=== PATIENT | male | born 1980 | race Caucasian/White ===

== ENCOUNTER 2025-10-28 05:52 | Day surgery (SDC) | payer OTHER, SELFPAY ==
[2025-10-28] VITALS (8 sets, daily range): BP systolic 105–144; BP diastolic 58–95; BMI 31.8
[2025-10-28] MEDS: TYLENOL 1000 MG PO (06:35)
[2025-10-28] MEDS: NORMOSOL-R/PLASMALYTE-A 1000 IV (06:36)
--- NOTE | 2025-10-28 08:26 | W.IMMPOSTOP ---
Surgical Immed Post Op Note
-
Primary Surgeon: Ramírez Ford MD
Assisting Surgeon:
Pre-op Diagnosis: right knee lateral meniscus tear
Post-op Diagnosis: right knee lateral meniscus tear, medial compartment chondrosis
Procedure Performed: arthroscopic right knee partial lateral meniscectomy
Anesthesia Type: general
Specimen / Cultures: none
Estimated Blood Loss: 1mL
Complications: none apparent
Operative Findings: complex tear of lateral meniscus body and anterior horn; grade 3 chondrosis of medial femoral condyle
Tourniquet time: 24 minutes at 250 mmHg
Operative dictation #:[id number]
== END 2025-10-28 09:30 | disposition home or self-care (01) ==
LOC: SDS 05:52
PROVIDERS: ATTENDING PHYSICIAN Student in an Organized Health Care Education/Training Program
DX: S83.271A Complex tear of lateral meniscus, current injury, right knee, initial encounter (principal); X58.XXXA Exposure to other specified factors, initial encounter; M94.261 Chondromalacia, right knee
CPT/HCPCS: 29881